=== PATIENT | female | born 1960 | race African-American/Black ===

== ENCOUNTER 2016-04-27 17:51 | Emergency (ER) | payer OTHER, MEDICAID ==
[~2016-04-27] VITALS: Ht 160 cm; Wt 85.3 kg
[2016-04-27 18:05] VITALS: BP 137/70
[2016-04-27] MEDS ORDERED: IBUPROFEN 600 MG TAB PO ONE (20:00)
== END 2016-04-27 21:32 | disposition home or self-care (01) ==
LOC: ER 17:51
DX: S92.355A Nondisplaced fracture of fifth metatarsal bone, left foot, initial encounter for closed fracture (principal); I10 Essential (primary) hypertension; W01.0XXA Fall on same level from slipping, tripping and stumbling without subsequent striking against object, initial encounter; Y93.89 Activity, other specified; Y99.8 Other external cause status; Y92.89 Other specified places as the place of occurrence of the external cause
CPT/HCPCS: 29515; 73610; 73630

== ENCOUNTER 2016-08-22 22:58 | Emergency (ER) | payer OTHER, MEDICAID ==
[~2016-08-22] VITALS: Ht 170.2 cm; Wt 90.7 kg
[2016-08-23 01:07] VITALS: BP 143/69
[2016-08-23] MEDS ORDERED: IBUPROFEN 800 MG TAB PO ONE (03:00)
== END 2016-08-23 02:56 | disposition home or self-care (01) ==
LOC: ER 23:12
DX: S80.02XA Contusion of left knee, initial encounter (principal); I10 Essential (primary) hypertension; W01.0XXA Fall on same level from slipping, tripping and stumbling without subsequent striking against object, initial encounter; Y93.89 Activity, other specified; Y99.8 Other external cause status; Y92.000 Kitchen of unspecified non-institutional (private) residence as the place of occurrence of the external cause
CPT/HCPCS: 73562

== ENCOUNTER 2020-09-16 11:53 | Emergency (ER) | payer OTHER, MEDICAID ==
[~2020-09-16] VITALS: Ht 160 cm; Wt 80.7 kg
[2020-09-16 12:20] VITALS: BP 143/81
[2020-09-16] MEDS ORDERED: traMADol HCL 50 MG TAB PO ONE ×2 (12:45→13:15)
== END 2020-09-16 14:07 | disposition home or self-care (01) ==
LOC: ER 11:53
DX: S93.492A Sprain of other ligament of left ankle, initial encounter (principal); I10 Essential (primary) hypertension; W01.0XXA Fall on same level from slipping, tripping and stumbling without subsequent striking against object, initial encounter; Y93.89 Activity, other specified; Y92.89 Other specified places as the place of occurrence of the external cause; Y99.8 Other external cause status
CPT/HCPCS: 73610